=== PATIENT | male | born 1955 | race Caucasian/White ===

== ENCOUNTER 2017-01-14 10:16 | Day surgery (SDC) | payer OTHER ==
[~2017-01-14] VITALS: Ht 157.5 cm; Wt 65.5 kg
[2017-01-14] MEDS ORDERED: METO-407 PO (10:45)
[2017-01-14] MEDS ORDERED: AMLO-147 PO (10:45)
[2017-01-14] MEDS ORDERED: PANT40TA4 PO (10:45)
[2017-01-14] MEDS ORDERED: ASPI81TA3 PO (10:45)
[2017-01-14 10:56] VITALS: Ht 157.5 cm; Wt 65.5 kg
[2017-01-14 11:20] VITALS: BP 133/78; PULSE 69; RESP 17
[2017-01-14] MEDS ORDERED: LIDOCAINE 2% (SDV) 5 ML INJ ONE (11:20)
[2017-01-14] MEDS ORDERED: PROPOFOL 40 ML ONE (11:20)
[2017-01-14 12:50] VITALS: BP 143/93; RESP 20
--- NOTE | 2017-01-14 21:25 | GILP ---
DATE OF PROCEDURE: NAME OF PROCEDURES: 1. Esophagogastroduodenoscopy and biopsy. 2. Colonoscopy and biopsy and polypectomy. SURGEON: Polina Schmidt MD PREOPERATIVE DIAGNOSES: 1. Positive occult blood in stool. 2. Upper abdominal pain. 3. Chronic heartburn. POSTOPERATIVE DIAGNOSES: 1. Gastroesophageal reflux disease. 2. Gastritis. 3. Gastric mucosal biopsies were taken for Helicobacter pylori test. 4. Colonoscopy all the way to the cecum. 5. The patient was noted to have multiple colon polyps and they were removed using the biopsy force ps as well as snare and electrocautery. 6. Internal hemorrhoids. INDICATION FOR THE PROCEDURE: Mr. Caio Gomez is a 61-year-old male patient who was noted to have positive occult blood in stool. He never had screening colonoscopy in the past. He also had upper abdominal pain and chronic heartburn, not responding to therapy. The patient was scheduled for end oscopy and colonoscopy for further evaluation. The procedures and possible complications are well explained to the patient, he understood and conse nted to the procedure. DESCRIPTION OF PROCEDURE: Under the influence of anesthesia, the gastroscope was carefully introduc ed into the esophagus. Under direct vision, it was advanced to the stomach and through the pylorus into the duodenal bulb and descending duodenum. FINDINGS: ESOPHAGUS: The patient had gastroesophageal reflux disease. He also had gastritis with erosions. Gastric mucosal biopsies were taken for H. pylori test. DUODENUM: Normal. The colonoscope was carefully introduced in the rectum. Under direct vision, it was advanced all th e way to the cecum. FINDINGS: The patient was performed to have multiple colon polyps in the right colon, the sigmoid, as well as the rectum and most of them were removed using the biopsy forceps. There was 1 rectal po lyp, which was removed using the snare and electrocautery. The patient was noted to have internal h emorrhoids. The patient tolerated the procedures very well and there was no complication from the procedures. A t the end of the procedures, he was awake with stable vital signs and he was discharged home to the care of his family. IMPRESSION: 1. Gastroesophageal reflux disease. 2. Gastritis with erosions. 3. Gastric mucosal biopsies were taken for Helicobacter pylori test. 4. Colonoscopy all the way to the cecum. 5. Multiple polyps in the right colon, transverse colon, as well as the rectum and they were mostly removed with the biopsy forceps. One of them was removed using the snare and electrocautery. 6. Internal hemorrhoids. PLAN: 1. Continue pantoprazole. 2. Add Zantac 300 mg p.o. at bedtime. 3. Await histopathology reports. 4. Because of the multiple colon polyps the patient had, recommend next screening colonoscopy in 3 years. Dictated By: POLINA BEDOYA/YAJAIRA Conf#: [id number] DID#: [id number] CC: POLINA SCHMIDT MD;*EndCC*
== END 2017-01-14 15:09 | disposition home or self-care (01) ==
LOC: GIL 10:16 → EDSEX 10:16 → GIL 15:09
PROVIDERS: ATTEND Internal Medicine Gastroenterology
DX: K92.1 Melena (principal); K21.0 Gastro-esophageal reflux disease with esophagitis; K29.70 Gastritis, unspecified, without bleeding; K64.8 Other hemorrhoids; D12.3 Benign neoplasm of transverse colon; K62.1 Rectal polyp; I10 Essential (primary) hypertension
CPT/HCPCS: 43239; 45380; 45385; 87081; 88305; Z7610

== ENCOUNTER 2018-07-16 13:06 | Observation (INO) | END 2018-07-17 14:15 | disposition home or self-care (01) ==